=== PATIENT | female | born 1970 | race African-American/Black ===

== ENCOUNTER 2024-01-15 08:30 | Outpatient (REF) | payer OTHER, SELFPAY ==
--- NOTE | ~2024-01-15 | XR_ITS ---
EXAMINATION: XR SHOULDER, RIGHT CLINICAL INFORMATION: Pain in the right shoulder COMPARISON: None available. TECHNIQUE: 3 views of the right shoulder including AP Grashey AP and axillary view FINDINGS: Prominent subacromial spur versus some ossification in the region of the subacromial space. Glenohumeral joint normal. Surrounding bone and soft tissues unremarkable. XR/XR shoulder RT min 2V IMPRESSION: Prominent subacromial spur versus ossification in the region of the subacromial space. Consider scapular Y view to differentiate Electronically signed by: Alton eLe MD 01/20/2024 08:54 AM EDT
== END 2024-01-15 08:31 | disposition home or self-care (01) ==
LOC: HO.HOSX 08:30
DX: M75.101 Unspecified rotator cuff tear or rupture of right shoulder, not specified as traumatic (principal)
CPT/HCPCS: 73030

== ENCOUNTER 2024-01-15 12:57 | Outpatient (AMB) | payer OTHER, SELFPAY ==
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
== END 2024-01-15 13:50 | disposition home or self-care (01) ==
PROVIDERS: PCP Pediatrics
DX: M75.101 Unspecified rotator cuff tear or rupture of right shoulder, not specified as traumatic (principal)
CPT/HCPCS: 99213